=== PATIENT | male | born 1955 | race Caucasian/White ===

== ENCOUNTER 2019-02-18 13:26 | Inpatient (IN) | payer OTHER ==
[~2019-02-18] VITALS: Ht 175.3 cm; Wt 95.7 kg
[~2019-02-18 13:26] MED LIST: ADULT LOW DOSE81 MG PO; ALDACTONE50 MG PO; AMBIEN 5 MG TABL5 M1; AMBIEN 5 MG TABL5 M1 PO; ASPIRIN81 M2 PO; ATIVAN0.5 MG PO; BACTRIM DS TAB1 EACH PO; BRILINTA90 MG PO; CALMOSEPTINE O3.5 GM TOP; CALMOSEPTINE OI71 GM TOP; CARVEDILOL12.5 MG PO; CARVEDILOL6.25 MG PO; CLOPIDOGREL75 MG PO; COLACE 100 MG100 MG PO; COREG PO; CRESTOR10 MG PO; CRESTOR20 MG PO; DOXYCYCLINE 10100 MG PO; DURAGESIC1 EAC4 TRANSDERM; EFFIENT10 MG PO; ENOXAPARIN40 MG/0.1 SUBQ; GABAPENTIN 100100 MG PO; GABAPENTIN100 MG PO; GENTAMICIN 0.1%15 G2 TOP; GLUCOPHAGE1000 MG PO; GLYCOLAX119 GM PO; HUMALOG100 UNIT/1; HYDROCODONE-AP1 EAC6 PO; IRON325 PO; LANTUS100 UNIT/M SUBQ; LASIX 20 MG TAB20 MG PO; LEVEMIR SUBQ; LIPITOR80 MG PO; LISINOPRIL2.5 MG PO; LMX 530 GM TOP; LYRICA 50 MG50 MG; MAGOX 400400 MG PO; MEDROLDOSEPACK PO; NEURONTIN 300300 M1 PO; NITROGLYCERIN0.4 MG; NITROSTAT0.3 MG SL; NO MEDS; NORCO 5-325 TA1 EACH PO; NOVOLOG100 UNIT/1 SUBQ; OMEPRAZOLE20 M2 PO; ONDANSETRON HCL4 M2 PO; OXYCODONE HCL 55 MG PO; PAIN & FEVER325 MG PO; PHENERGAN 25 MG25 M1 PO; PROSTATE 2.4 C1 EACH PO; REMERON 30 MG T30 M1 PO; ROCEPHIN 11 GM/1001 IV; SANTYL OINTMENT30 G1 TOP; SELSUN BLUE325 M1 TOP; SENNA8.6 MG PO; SERTRALINE HCL50 MG PO; SIMVASTATIN40 MG PO; TOUJEO SOL300 UNIT/1; TRAMADOL 50 MG50 MG; TRAMADOL 50 MG50 MG PO; TRAZODONE HCL50 MG PO; TYLENOL325 MG PO; UNICOMPLEX M TA1 TA1 PO; VANCOMYCIN HCL 11 G2 IVPB; VICODIN 5-5001 EACH PO; VITAMIN B COMP1 EACH PO; VITAMIN D5000 UNIT PO; VITAMINC500 PO; XALATAN2.5 ML OPHTHALMIC; XANAX 1 MG TABLE1 MG PO
[2019-02-18 13:31] VITALS: BP 137/73
[2019-02-18 13:59] LABS: URINE BILIRUBIN NEGATIVE (Negative); URINE BLOOD 2+ (Negative); URINE CLARITY CLEAR; URINE COLOR YELLOW; URINE GLUCOSE-RANDOM NEGATIVE (Negative); URINE KETONES NEGATIVE (Negative); URINE LEUKOCYTES-REFLEX NEGATIVE (Negative); URINE NITRITE-REFLEX NEGATIVE (Negative); URINE PROTEIN 2+ (Negative); URINE SPECIFIC GRAVITY 1.025 (1.005-1.030); URINE UROBILINOGEN 0.2 E.U./dl (0.2-1.0)
[2019-02-18 14:09] LABS: ABSOLUTE BASOPHILS 0.1 thou/uL (0.0-0.2); ABSOLUTE EOSINOPHILS 0.4 thou/uL (0.0-0.7); ABSOLUTE LYMPHOCYTES 0.7 thou/uL (0.8-5.3); ABSOLUTE MONOCYTES 0.3 thou/uL (0.0-1.2); ABSOLUTE NEUTROPHILS 3.4 thou/uL (1.6-8.1); BASOPHILS 1.2 %; EOSINOPHILS 9.1 %; HEMATOCRIT 32.4 % (42.0-52.0); HEMOGLOBIN 10.8 gm/dL (14.0-18.0); LYMPHOCYTES 13.5 %; MCH 27.8 pg (26.0-34.0); MCHC 33.2 g/dL (28.0-37.0); MCV 83.8 fL (80.0-100.0); MONOCYTES 6.4 %; MPV 7.8 fl. (7.2-11.1); NUCLEATED RBCS 0 /100WBC; PLATELET COUNT* 190 thou/uL (150-400); POLYS 69.8 %; RBC 3.87 mil/uL (4.50-6.00); WBC 4.8 thou/uL (4.0-11.0)
[2019-02-18 14:16] LABS: APTT 25.2 Seconds (25.0-31.3); INR 1.1; PROTIME 11.4 Seconds (9.20-11.50)
[2019-02-18 14:19] LABS: SQUAMOUS 0-3 Few /LPF (0-3)
[2019-02-18 14:20] LABS: URINE WBC-REFLEX 0-5 Rare /HPF (0-5)
[2019-02-18 14:21] LABS: URINE RBC 0-2 Rare /HPF (0-2)
[2019-02-18 14:23] LABS: ANION GAP 7 mmol/L (7-16); BUN 17 mg/dL (7-18); CHLORIDE 106 mmol/L (98-107); CO2 30 mmol/L (21-32); CREATININE 1.2 mg/dL (0.6-1.3); GLUCOSE 127 mg/dL (70-99); POTASSIUM 3.9 mmol/L (3.5-5.1); SODIUM 143 mmol/L (136-145); TROPONIN-I LEVEL <0.06 ng/mL (<0.06)
[2019-02-18 14:29] LABS: ALBUMIN 3.1 g/dL (3.4-5.0); ALKALINE PHOSPHATASE 109 U/L (46-116); NT-PRO BRAIN NAT PEPTIDE 2657 pg/mL (<300); SGOT 15 U/L (15-37); SGPT 21 U/L (30-65); TOTAL BILIRUBIN 0.5 mg/dL (<0.1-1.0); TOTAL PROTEIN 6.6 g/dL (6.4-8.2)
[2019-02-18 14:29] LABS: AMORPHOUS URATES Many /LPF (None Seen); CASTS None Seen /LPF (None Seen)
[2019-02-18 14:30] LABS: BACTERIA-REFLEX 1-9 Few /HPF (None Seen)
[2019-02-18 14:31] LABS: MUCUS None Seen strn/LPF (None Seen)
[2019-02-18 16:35] VITALS: BP 126/55
[2019-02-18] MEDS ORDERED: NEURONTIN 300300 M1 PO (16:50)
[2019-02-18 20:20] VITALS: BP 126/76
[2019-02-19] VITALS: BP 120/61
[2019-02-19 04:00] VITALS: BP 124/57
[2019-02-19 07:15] VITALS: BP 114/54
--- NOTE | 2019-02-19 11:38 | EKG ---
[place] [address] ELECTROCARDIOGRAM REPORT Name: JAMEL CAMARGO Room: [address] ADM IN M.R.#: [id number] Admission: 02/18/19 Attend Phys: Wiliam Connors MD Discharge: Date of : 53 Report #: [id number] THIS REPORT FOR: //name// [facility] ED Test Date: 2019-02-18 Test Time: 13:34:06 Pat Name: JAMEL CAMARGO Department: Room: [facility] Gender: M What Job Titles Mean: SHAYAN : 1955 Requested By: Ronen Maya Order Number: [id number] MD: Vikram Dominguez Measurements Intervals [place] Rate: 75 P: 10 MA: 226 QRS: -5 QRSD: 84 T: 86 QT: 400 QTc: 447 Interpretive Statements Sinus rhythm Atrial premature complex Prolonged MA interval Anterior infarct, old Baseline wander in lead(s) V1 Compared to ECG 05/31/2016 21:01:00 Atrial premature complex(es) now present First degree AV block now present Sinus tachycardia no longer present Myocardial infarct finding still present Electronically Signed On 02-19-2019 11:38:12 CDT by Vikram Dominguez [email or web address] <ELECTRONICALLY SIGNED> By: Vikram Dominguez MD, [facility] 02/19/19 1138 1334 1334 Vikram Dominguez MD, [facility] /EPI
[2019-02-19 12:15] VITALS: BP 148/75
[2019-02-19 16:12] VITALS: BP 139/56
[2019-02-19 20:30] VITALS: BP 122/57
[2019-02-20] VITALS: BP 115/66
[2019-02-20 03:40] VITALS: BP 131/61
[2019-02-20 07:15] VITALS: BP 144/71
[2019-02-20] MEDS ORDERED: ASPIR 8181 MG PO (10:14)
[2019-02-20 12:16] VITALS: BP 148/70
--- NOTE | 2019-02-20 13:02 | 2DMMODE ---
[place] [address] 2 D/M-MODE ECHOCARDIOGRAM Name: JAMEL CAMARGO Room: [facility] IN [facility]#: [id number] Admission: 02/18/19 Attend Phys: Wiliam Connors, Discharge: Date of : 53 Date of Service: 02/20/19 1302 Report #: [id number] THIS REPORT FOR: //name// APPROVED REPORT Study performed: 02/20/2019 09:39:46 EXAM: Comprehensive 2D, Doppler, and color-flow Echocardiogram Patient Location: In-Patient Room #: 224 Status: routine BSA: 2.20 HR: 72 bpm BP: 144/71 mmHg Rhythm: NSR Other Information Study Quality: Good Indications Congestive Heart Failure Syncope Chest Pain 2D Dimensions IVSd: 10.18 (7-11mm) LVOT Diam: 21.89 (18-24mm) LVDd: 54.59 mm PWd: 10.26 (7-11mm) Ascending Ao: 33.71 (22-36mm) LVDs: 40.50 (25-40mm) Aortic Root: 31.80 mm Volumes Left Atrial Volume (Systole) LA ESV Index: 39.10 mL/m2 Aortic Valve AoV Peak Kevin.: 1.02 m/s AO Peak Gr.: 4.15 mmHg LVOT Max P.86 mmHg AO Mean Gr.: 2.13 mmHg LVOT Mean P.60 mmHg LVOT Max V: 0.85 m/s AO V2 VTI: 20.80 cm LVOT Mean V: 0.60 m/s ROHIT (VTI): 3.41 cm2 LVOT V1 VTI: 18.87 cm Mitral Valve E/A Ratio: 0.87 [place] [address] 2 D/M-MODE ECHOCARDIOGRAM Name: JAMEL CAMARGO Room: [address] IN .R.#: [id number] Admission: 02/18/19 Attend Phys: Wiliam Connors, Discharge: Date of : 53 Date of Service: 02/20/19 1302 Report #: [id number] MV Decel. Time: 142.88 ms MV E Max Kevin.: 0.87 m/s MV PHT: 41.44 ms MVA (PHT): 5.31 cm2 TDI E/Lateral E': 7.91 E/Medial E': 9.67 Medial E' Kevin.: 0.09 m/s Lateral E' Kevin.: 0.11 m/s Pulmonary Valve PV Peak Kevin.: 0.80 m/s PV Peak Gr.: 2.55 mmHg Tricuspid Valve RAP Estimate: 5.00 mmHg TR Peak Gr.: 44.64 mmHg RVSP: 49.00 mmHg PA Pressure: 49.00 mmHg Left Ventricle The left ventricle is normal size. Regional wall motion abnormalities are noted.The anterior wall is akinetic.The apex is akinetic.The lateral is mildly hypokinetic.Other segements are normal. There is normal left ventricular wall thickness. Left ventricular systolic function is normal. The left ventricular ejection fraction is within the normal range. No left ventricle thrombus noted on this study. LVEF is 30-35%. Grade I - abnormal relaxation pattern. Right Ventricle The right ventricle is normal size. The right ventricular systolic function is normal. Atria Left atrium is mildly dilated. The right atrium size is normal. Aortic Valve The aortic valve is normal in structure. No aortic regurgitation is present. There is no aortic valvular stenosis. Mitral Valve The mitral valve is normal in structure. Mild mitral regurgitation. No evidence of mitral valve stenosis. Tricuspid Valve The tricuspid valve is normal in structure. Trace tricuspid regurgitation. Mod[place] [address] 2 D/M-MODE ECHOCARDIOGRAM Name: JAMEL CAMARGO Room: [address] IN M.R.#: [id number] Admission: 02/18/19 Attend Phys: Wiliam Connors, Discharge: Date of : 53 Date of Service: 02/20/19 1302 Report #: [id number] Pulmonic Valve The pulmonary valve is normal in structure. There is no pulmonic valvular regurgitation. Great Vessels The aortic root is normal in size. IVC is not visualized. Pericardium There is no pericardial effusion. <Conclusion> LVEF is 30-35%. Regional wall motion abnormalities are noted.The anterior wall is akinetic.The apex is akinetic.The lateral is mildly hypokinetic.Other segements are normal. No left ventricle thrombus noted on this study. Left atrium is mildly dilated. There is no aortic valvular stenosis. No aortic regurgitation is present. Mild mitral regurgitation. <ELECTRONICALLY SIGNED> By: Vikram Dominguez MD, FACC 02/20/19 1302 1302 1302 Vikram Dominguez MD, FACC /INF
[2019-02-20 15:52] VITALS: BP 139/71
[2019-02-20 20:00] VITALS: BP 129/57
[2019-02-21] VITALS: BP 137/67
[2019-02-21 04:00] VITALS: BP 154/78
[2019-02-21 08:00] VITALS: BP 162/82
[2019-02-21] MEDS ORDERED: LISINOPRIL2.5 M1 PO (09:21)
[2019-02-21 12:15] VITALS: BP 157/76
--- NOTE | 2019-02-21 14:21 | CARDNUC ---
[place] [address] CARDIAC NUCLEAR IMAGING REPORT Name: JAMEL CAMARGO Room: [address] IN [facility]#: [id number] Admission: 02/18/19 Attend Phys: Wiliam Connors, Discharge: Date of : 53 Date of Service: 02/21/19 1421 Report #: [id number] THIS REPORT FOR: //name// APPROVED REPORT Imaging Protocol: Stress Tc-99m/Rest Tc-99m 2 days Study performed: 02/20/2019 11:33:00 Indication: Seizure Patient Location: In-Patient Room #: 224 Stress Tech: Gisele Schaeffer Stress Nurse: Batsheva Campbell RN NM Tech:ЮЛИЯ Arciniega Ht: 5 ft 9 in Wt: 233 lbs BSA: 2.20 m2 BMI: 34.40 Medical History Medical History: Angina, CAD s/p CABG, HTN, Hyperlipidemia, PVD, Seizures, Stroke/TIA, HX PE's /IVC filter, bilateral BTK amputee. Medications: Carvedilol, ASA 81 Mg, Lipitor. Allergies: Codeine Cardiac Risk Factors: Age, HTN, Hyperlipidemia, PVD, HX of PE's, HX CVA. Previous Cardiac Procedures: CABG Pretest Chest Pain Characteristics: No chest pain Exercise History: Sedentary Physical Disabilities: Bilateral BTK amputee. Meds Held (24 hrs): Carvedilol. Resting Data Rest SPECT myocardial perfusion imaging was performed in supine position 30 minutes following the intravenous injection of 36.0 mCi of Tc-99m Sestamibi. Time of rest injection: 1105 Date: 02/21/2019 The images were gated to evaluate regional wall motion and calculate left ventricular ejection fraction. Administration Route: IV Pharmacologic Stress Pharmacologic stress test was performed by injecting Regadenoson 0.4 mg IV push over 10-15 seconds immediately followed by the intravenous injection of 36.1 mCi of Tc-99[place] [address] CARDIAC NUCLEAR IMAGING REPORT Name: JAMEL CAMARGO IVAN Room: [address]#: [id number] Admission: 02/18/19 Attend Phys: Wiliam Connors, Discharge: Date of : 53 Date of Service: 02/21/19 1421 Report #: [id number] Time of stress injection: 1155 Date: 02/20/2019 Administration Route: IV Administration Site: Right Wrist Gated Stress SPECT was performed 40 minutes after stress injection. The images were gated to evaluate regional wall motion and calculate left ventricular ejection fraction. Stress only was performed in the Supine position. Stress Test Details Stress Test: Pharmacologic stress testing performed using 0.4 mg of regadenoson per 5 mL given IV over 10 seconds. Reason for pharmacologic stress test: Bilateral BTK amputee.. HR Max Heart Rate (APMHR): 156 bpm Resting HR: 79 bpm Target HR (85% APMHR): 132 bpm Max HR Achieved: 99 bpm % of APMHR: 63 Recovery HR: 92 bpm HR response to stress: Normal HR response to stress BP Resting BP: 140/84 mmHg Max BP: 124/68 mmHg Recovery BP: 128/69 mmHg BP response to stress: Normal blood pressure response to stress. ECG Resting ECG: nsr ant q waves Stress ECG: nsr ST Change: none Maximum ST Deviation: none mm Arrhythmia: none Recovery ECG: nsr Recovery ST Change: none Recovery ST Deviation: none mm Recovery Arrhythmia: none Clinical Reason for Termination: Completed protocol Stress Symptoms: Dyspnea Exercise duration: 0 min 0 sec Exercise capacity: 1.00 [place] [address] CARDIAC NUCLEAR IMAGING REPORT Name: BRITTNEYRenukaJAMEL LOVE Room: [address]#: [id number] Admission: 02/18/19 Attend Phys: Wiliam Connors, Discharge: Date of : 53 Date of Service: 02/21/19 1421 Report #: [id number] 63 year old male inpatient presented with recent HX of near syncope/seizure. HX of PE s/p IVC filter, CABG and CVA's. Patient has bilateral BTK amputations and had to lay in bed for test. Lexiscan tolerated. Patient escorted via bed by staff to Nuclear Medicine for images. Patient stable with no complaints at that time. Stress ECG Conclusion negative for ischemia Study Quality Study: Good Artifact: No artifact Lung Uptake: Normal Study Data Post stress, the left ventricular ejection was 34%.. SSS: 7 SRS: 6 SDS: 1 Perfusion There is a large , severe intensity distal anterior, apical, apical septal defect on both rest and stress images, normal perfusion all other segments. Compatible with distal anterior AK.No periinfarct ischemia is seen. Images were reviewed using [employer]. Wall Motion severe distal anterior ,septal,apical hypokinesis. Elevated end diastolic volume Nuclear Conclusion ECG Findings: negative for ischemia Clinical Findings: negative for ischemia Nuclear Findings: negative for ischemia Exercise Capacity: not assessed Left Ventricular Function: abnormal Risk Study: moderate to high The study demonstrates prior anterior AK, without shelly-infarct ischemia and moderate [place] [address] CARDIAC NUCLEAR IMAGING REPORT Name: JAMEL CAMARGO Room: [address] IN M.R.#: [id number] Admission: 02/18/19 Attend Phys: Wiliam Connors, Discharge: Date of : 53 Date of Service: 02/21/19 1421 Report #: [id number] <Conclusion> negative for ischemia <ELECTRONICALLY SIGNED> By: Vikram Dominguez MD, FACC 02/21/19 142 20 20 Vikram Dominguez MD, FACC /INF
[2019-02-21 15:58] VITALS: BP 145/73
[2019-02-21 20:00] VITALS: BP 135/60
[2019-02-22] VITALS: BP 132/54
[2019-02-22 04:00] VITALS: BP 120/62
[2019-02-22 08:00] VITALS: BP 134/71
[2019-02-22 12:00] VITALS: BP 107/56
[2019-02-22 20:00] VITALS: BP 141/70
[2019-02-23 04:00] VITALS: BP 121/64
[2019-02-23 08:00] VITALS: BP 125/69
--- NOTE | 2019-02-23 09:12 | EEG ---
[address] [address] EEG STUDY REPORT Name: JAMEL CAMARGO Room: [address] IN ..#: [id number] Admission: 02/18/19 Attend Phys: Wiliam Connors MD Discharge: Date of : 53 Report #: [id number] THIS REPORT FOR: //name// CC: Romie Connors MD HISTORY: The patient is a 63-year-old male with possible seizure. An EEG is requested for further evaluation. DESCRIPTION: The awake record consists of symmetric moderate amplitude 8-9 posterior dominant rhythm, which attenuates with eye opening. Photic stimulation is non-activating. Stage 1 sleep is characterized by attenuation of the background record. No focal abnormalities or epileptiform discharges are noted. IMPRESSION: This is a normal adult awake to stage 1 sleep record. No focal abnormalities or epileptiform discharges were noted. <ELECTRONICALLY SIGNED> By: Harika Dominguez DO 02/23/19 0912 1135 [id number] Dominguez DO /nt
[2019-02-23 12:00] VITALS: BP 113/52
--- NOTE | 2019-02-23 13:31 | EKG ---
[place] [address] ELECTROCARDIOGRAM REPORT Name: JAMEL CAMARGO Room: [address] ADM IN M.R.#: [id number] Admission: 02/18/19 Attend Phys: Wiliam Connors MD Discharge: Date of : 53 Report #: [id number] THIS REPORT FOR: //name// [facility] Test Date: 2019-02-23 Test Time: 08:29:34 Pat Name: JAMEL CAMARGO Department: Room: [address] Gender: M Inspector [employer]: : 1955 Requested By: Billy Portillo Order Number: [id number] Reading MD: Marco Vera Measurements Intervals [place] Rate: 70 P: 55 NM: 226 QRS: 10 QRSD: 87 T: 95 QT: 403 QTc: 435 Interpretive Statements Sinus rhythm Prolonged NM interval Borderline low voltage, extremity leads Consider anterior infarct Nonspecific T abnormalities, lateral leads Compared to ECG 02/18/2019 13:34:06 Atrial premature complex(es) no longer present Myocardial infarct finding still present Electronically Signed On 02-23-2019 13:31:33 CDT by Marco Vera [email or web address] <ELECTRONICALLY SIGNED> By: Marco Vera MD, [facility] 02/23/19 1331 0829 0829 Marco Vera MD, [facility] /EPI
--- NOTE | 2019-02-23 13:32 | EKG ---
[place] [address] ELECTROCARDIOGRAM REPORT Name: JAMEL CAMARGO Room: [address] ADM IN M.R.#: [id number] Admission: 02/18/19 Attend Phys: Wiliam Connors MD Discharge: Date of : 53 Report #: [id number] THIS REPORT FOR: //name// [facility] Test Date: 2019-02-23 Test Time: 08:30:32 Pat Name: JAMEL CAMARGO Department: Room: [address] Gender: M [employer]: : 1955 Requested By: Billy Portillo Order Number: [id number] Ronda MD: Marco Vera Measurements Intervals [place] Rate: 70 P: 56 ID: 222 QRS: 5 QRSD: 89 T: 94 QT: 406 QTc: 439 Interpretive Statements Sinus rhythm Prolonged ID interval Borderline low voltage, extremity leads Consider anterior infarct Nonspecific T abnormalities, lateral leads Electronically Signed On 02-23-2019 13:32:20 CDT by Marco Vera [email or web address] <ELECTRONICALLY SIGNED> By: Marco Vera MD, [facility] 02/23/19 1332 9 9 Marco Vera MD, [facility] /EPI
[2019-02-23 15:26] VITALS: BP 105/50
--- NOTE | 2019-02-23 19:12 | CON ---
[address] [address] CONSULTATION Name: JAMEL CAMARGO Room: [address] IN M.R.#: [id number] Admission: 02/18/19 Attend Phys: Wiliam Connors MD Discharge: Date of : 53 Report #: [id number] THIS REPORT FOR: //name// CC: Romie Connors DATE OF SERVICE: 02/21/2019 HISTORY OF PRESENT ILLNESS: This is a 63-year-old male patient who was evaluated by me for seizure-like activity. I discussed the patient with Dr. Sue yesterday and I discussed the patient with him today. This patient looks like had a grand mal seizure. He stiffened up. He had altered mental status and then he became better. He never had this kind of episode before. He used to be a diabetic, but he does not take any medications now and does not have any trouble with hypoglycemia. REVIEW OF SYSTEMS: Positive for what looks like seizure this time. He had a CVA in the past. According to him, it affected the right side. I do not have any of those records. He does appear to have a significantly decreased ejection fraction. A 14-point review of systems also indicates amputation on both sides. He is being seen by Cardiology. He had a history of osteomyelitis in the past. He does have a history of hyperlipidemia. He said he lost a lot of weight that helped his diabetes, but he did not have any surgery. PAST MEDICAL HISTORY: Positive for bilateral amputation. FAMILY HISTORY: Negative for any early age stroke. SOCIAL HISTORY: He denies any abuse of alcohol. PHYSICAL EXAMINATION: The patient is alert, responsive, able to follow simple commands. His speech, concentration, fund of knowledge and memory is at his baseline. Cranial nerve examination 2-12 looks unremarkable. Neuromuscular examinations indicate amputations on both lower extremities. There is no meningeal sign. There is no carotid bruit. Cardiac examination is unremarkable. No respiratory difficulty. Blood pressure is 157/76, respirations 18, pulse is 81, temperature is 98.3. LABORATORY DATA: White count is 5.6, hemoglobin is somewhat low. His last B12 was on the lower side at 198. His MRI was reviewed and that does not show any acute changes. IMPRESSION: Clinically, it does look like this patient had a seizure. He had multiple strokes in the past. He does have cardiomyopathy. He needs further workup. He needs monitoring to look for [place] [address] CONSULTATION Name: JAMEL CAMARGO Room: [address] IN [facility]#: [id number] Admission: 02/18/19 Attend Phys: Wiliam Connors MD Discharge: Date of : 53 Report #: [id number] He will need a carotid Doppler to make sure vertebral flow is okay. He needs to follow up with us as an outpatient. I discussed with him the option of taking the medications for seizure or not taking it. He does not want to take any seizure medication at the moment. He was instructed to take seizure precautions. Those seizure precautions were discussed with him in detail. More than 50 minutes of time was spent taking care of this patient today and majority of that time was spent counseling the patient and coordinating his care. <ELECTRONICALLY SIGNED> By: Bryan Navarrete MD 02/23/19 1912 1253 0505Bryan Navarrete MD /nt
[2019-02-23 20:00] VITALS: BP 123/57
[2019-02-24] VITALS: BP 134/63
[2019-02-24 04:35] VITALS: BP 130/70
[2019-02-24 08:00] VITALS: BP 131/76
[2019-02-24 08:56] VITALS: BP 131/76
--- NOTE | 2019-02-24 09:29 | CON ---
[address] [address] CONSULTATION Name: JAMEL CAMARGO Room: [address] IN M.R.#: [id number] Admission: 02/18/19 Attend Phys: Wiliam Connors MD Discharge: Date of : 53 Report #: [id number] THIS REPORT FOR: //name// CC: Romie Connros DATE OF SERVICE: 02/19/2019 REQUESTING PHYSICIAN: Adolph Ny MD CHIEF COMPLAINT: Syncopal, neurologic event. HISTORY OF PRESENT ILLNESS: The patient is a 63-year-old man with ischemic cardiomyopathy, had a witnessed seizure by his daughter and granddaughter. He was shaving at that time. He started to have gurgling and then he slid out of his wheelchair. By the time he got to the Emergency Room, he was somewhat postictal and combative and confused. He was given Versed. His presenting ECG was a sinus rhythm. He has no complaints of chest pain prior to the event. He was not having palpitations. He was not having orthopnea or PND. He has had prior MIs and so this has not felt like any of those. His baseline ECG shows an abnormal infarct, anterior old appearing, but sinus rhythm on all of telemetry readings and ECGs since his hospitalization yesterday. PAST MEDICAL HISTORY: He has a complex medical history. He had previously been seen in our practice for prior [place] and had prior PCI with Dr. Messina and then he presented to [place] with another acute coronary syndrome event and required open heart surgery in 2015. Details of the surgery are not available. He then developed complications of postoperative pulmonary embolus and CVA and ultimately developed decubitus ulcers in his lower extremities with osteomyelitis and had bilateral slwew-iki-jfih amputations and it has been in rehab facilities off and on for the last 3 years or so. He has a history of morbid obesity, hyperlipidemia, HOME MEDICATIONS: Include carvedilol 12.5 mg p.o. b.i.d., Remeron, tramadol, Plavix 75 mg daily, lidocaine, insulin. REVIEW OF SYSTEMS: No fevers or chills. Positive weakness. CARDIOVASCULAR: No chest pain, no orthopnea, no palpitations. NEUROLOGIC: Positive syncope, positive seizure, positive history of CVAs. HEMATOLOGIC: No anemia or bleeding disorders. RENAL: No history of kidney failure. ENDOCRINE: [place] [address] CONSULTATION Name: JAMEL CAMARGO Room: [address]#: [id number] Admission: 02/18/19 Attend Phys: Wiliam Connors MD Discharge: Date of : 53 Report #: [id number] ID: No fevers or chills. PAST SURGICAL HISTORY: Prior bypass surgery as noted above. SOCIAL HISTORY: He had been living in a nursing facility until just recently. Now, he is living with his family, his daughter. PHYSICAL EXAMINATION: VITAL SIGNS: Blood pressure 114/54, pulse 73, sinus rhythm. GENERAL: This is an obese, middle-aged male. He is alert, pleasant, in no apparent distress. HEENT: Eyes are intact. No facial asymmetry. NECK: Supple. No jugular venous distention. Carotid upstrokes are normal. I cannot hear bruits. CARDIOVASCULAR: Regular faint S3. I cannot hear a murmur. LUNGS: Diminished breath sounds, but clear. ABDOMEN: Soft, nontender. EXTREMITIES: He has nityp-wph-btcl amputations. Electrocardiogram shows sinus rhythm, anterior infarct, old. Hemoglobin is 10.8, white blood count 4.8, platelet count 190,000. Troponin I is 0.06 x 3 sets. Creatinine is 1.2. Sodium is 143, potassium 3.9, chloride is 106, CO2 is 30, glucose is 127. CT scan of brain showed no acute process. IMPRESSION: 1. Seizure event. Etiology of this could be neurologic in nature and Neurology evaluation is pending, likely requiring an EEG. We will continue with cardiac telemetry monitoring and if his neurologic workup is negative, he will need to have 30 days of cardiac monitoring as well. 2. Ischemic cardiomyopathy, I ordered an echocardiogram and stress test to rule out ischemic etiology. Currently, his telemetry is normal. 3. Chronic systolic congestive heart failure. He does not have evidence of heart failure. 4. Hyperlipidemia. He should be back on a statin therapy. I would continue with his Plavix as he has a history of severe vascular disease if he does not have evidence of intracranial bleeding. 5. Insulin requiring diabetes. <ELECTRONICALLY SIGNED> By: Billy Portillo MD, FACC 02/24/19 0929 1107 0618Vikram Dominguez MD, FACC /nt
--- NOTE | 2019-02-24 16:41 | CARD ---
[address] [address] CARDIAC CATH REPORT Name: JAMEL CAMARGO Room: [address] IN [facility]#: [id number] Admission: 02/18/19 Attend Phys: Wiliam Connors MD Discharge: 02/24/19 Date of : 53 Report #: [id number] THIS REPORT FOR: //name// APPROVED REPORT Study performed: 02/22/2019 15:47:08 Patient Status: In-Patient Room #: 224 Event Personnel: Billy Portillo Development Spec, Acacia Estrada RN RN, Benton DavisIS Scrub, Laina Aparicio RN Monitor Exam: insertion of a single lead ICD Indications: ischemic cardiomyopathy The patient is a 63 year-old male with a history of ischemic cardiomyopathy. Patient Info Last EF%: 34% Date: 02/18/19 NYHA Heart Class: II Reason for implant: Primary prevention Intraoperative Conscious Sedation Sedation start time: 16:18 Case end Time: 16:42 Fentanyl 75 mcg Versed 3 mg Implanted Devices: Biotronik Intica 7 VRT DX DF1 pro-MRI, model #247778, serial number [id number] single lead ICD generator Biotronik Plexa pro-MRI DF1 DX 65^15, model #709472, serial #[id number] RV pacing defibrillator lead Procedure After informed consent was obtained the patient was brought to the interventional radiology lab. The area of the left chest was prepped and draped in sterile fashion. Local anesthesia was achieved with 1% lidocaine. Next after an initial incision was made a device pocket was formed over the left pectoralis muscle using a electrocautery and blunt dissection. Next after a peripheral injection of 10 mL of IV contrast the left subclavian vein was accessed using a micropuncture kit. Ultimately a safety J guidewire was advanced to the right atrium under fluoroscopic guidance. Next a 7 [place] tear-away introducer was advanced over the guidewire. The dilator and guidewire were removed and a RV pacing defibrillator lead was advanced to a secure position within the right ventricular apex. The lead was actively fixed. The tear-away introducer was removed. [place] [address] CARDIAC CATH REPORT Name: JAMEL CAMARGO Room: [address]#: [id number] Admission: 02/18/19 Attend Phys: Wiliam Connors MD Discharge: 02/24/19 Date of : 53 Report #: [id number] Thresholds and sensing were checked and deemed to be satisfactory. The lead was then secured within the device pocket using the designated cuffs and interrupted stitches of 0 silk suture. The device pocket was then flushed with antibiotic solution. Next the ICD generator was attached to the lead. The redundant lead and generator were then placed within the device pocket. The deep tissues were closed using interrupted stitches of 2-0 Vicryl. The skin incision was then closed with a single subcutaneous tubular stitch of 4-0 Vicryl. Several Steri-Strips were placed across the incision. A sterile Telfa dressing was then covered with a Tegaderm. The patient tolerated procedure well without complication. Findings The sensed P-wave was 16.5 mV. The sensed R-wave was 23.8 mV. The RV pacing threshold was 0.8 V at 0.40 ms. The RV pacing impedance was 595 ohms. VF detection rate to 122 VT 1 detection rate 154 bpm VT 2 detection rate 176 bpm VF therapies anti-tach pacing times one followed by 40 J shock 8 VT 1 therapy monitor only VT 2 therapies anti-tach pacing 6 followed by 40 J shock 8 Conclusion 1. Ischemic cardiomyopathy. 2. Successful placement of a single lead ICD for primary prevention. <ELECTRONICALLY SIGNED> By: Billy Portillo MD, [facility] 02/24/191640 40 40Micfabi Portillo MD, FACC /INF
== END 2019-02-24 13:29 | disposition home health service (06) | DRG 245 ==
LOC: M.ERS 13:26 → M.2W 14:42 → M.TBA-ER 14:42 → M.2W 16:21
PROVIDERS: Emergency Medicine Emergency Medical Services
DX: I25.5 Ischemic cardiomyopathy (principal); G40.419 Other generalized epilepsy and epileptic syndromes, intractable, without status epilepticus; E44.1 Mild protein-calorie malnutrition; I50.22 Chronic systolic (congestive) heart failure; E78.5 Hyperlipidemia, unspecified; E11.51 Type 2 diabetes mellitus with diabetic peripheral angiopathy without gangrene; E66.01 Morbid (severe) obesity due to excess calories; I11.0 Hypertensive heart disease with heart failure; I25.10 Atherosclerotic heart disease of native coronary artery without angina pectoris; G40.909 Epilepsy, unspecified, not intractable, without status epilepticus; Z79.4 Long term (current) use of insulin; Z95.820 Peripheral vascular angioplasty status with implants and grafts; Z89.512 Acquired absence of left leg below knee; Z95.1 Presence of aortocoronary bypass graft; Z86.73 Personal history of transient ischemic attack (TIA), and cerebral infarction without residual deficits; Z95.5 Presence of coronary angioplasty implant and graft; Z88.6 Allergy status to analgesic agent; Z68.31 Body mass index [BMI] 31.0-31.9, adult; Z86.711 Personal history of pulmonary embolism; Z95.828 Presence of other vascular implants and grafts

== ENCOUNTER 2019-05-12 17:38 | Inpatient (IN) | payer OTHER | END 2019-05-18 13:15 | disposition home health service (06) | DRG 101 | LOC: M.ERS 17:38 → M.TBA-ER 18:50 → M.2W 20:05 → M.ORTHSURG 05-15 23:10 | PROVIDERS: ADMIT Internal Medicine | DX: R56.9 Unspecified convulsions (principal); I69.359 Hemiplegia and hemiparesis following cerebral infarction affecting unspecified side; I10 Essential (primary) hypertension; E78.5 Hyperlipidemia, unspecified; E11.51 Type 2 diabetes mellitus with diabetic peripheral angiopathy without gangrene; I25.10 Atherosclerotic heart disease of native coronary artery without angina pectoris; L21.9 Seborrheic dermatitis, unspecified; Z79.82 Long term (current) use of aspirin; Z79.4 Long term (current) use of insulin; Z95.820 Peripheral vascular angioplasty status with implants and grafts; Z89.512 Acquired absence of left leg below knee; Z89.511 Acquired absence of right leg below knee; Z95.1 Presence of aortocoronary bypass graft; Z95.5 Presence of coronary angioplasty implant and graft; Z88.6 Allergy status to analgesic agent; Z79.899 Other long term (current) drug therapy ==

== ENCOUNTER 2019-12-10 16:03 | Emergency (ER) | payer MEDICARE, OTHER ==
[~2019-12-10] VITALS: Ht 175.3 cm
[~2019-12-10 16:03] MED LIST changes: +ACCUNEB SO1.25 MG/1 INH; +ASPIR 8181 MG PO; +KEPPRA 500 MG500 M1 PO; +KETOCONAZOLE120 ML TOP; +LISINOPRIL2.5 M1 PO
[2019-12-10 17:12] LABS: HEMATOCRIT 38.2 % (42.0-52.0); HEMOGLOBIN 13.4 gm/dL (14.0-18.0); MCH 30.2 pg (26.0-34.0); MCV 86.2 fL (80.0-100.0); MPV 7.6 fl. (7.2-11.1); RBC 4.43 mil/uL (4.50-6.00); RDW-CV 13.2 % (10.5-14.5); WBC 6.4 thou/uL (4.0-11.0)
[2019-12-10 17:19] LABS: URINE BILIRUBIN NEGATIVE (Negative); URINE BLOOD TRACE (Negative); URINE CLARITY CLEAR; URINE COLOR YELLOW; URINE GLUCOSE-RANDOM NEGATIVE (Negative); URINE KETONES NEGATIVE (Negative); URINE LEUKOCYTES NEGATIVE (Negative); URINE NITRITE NEGATIVE (Negative); URINE PROTEIN 2+ (Negative)
[2019-12-10 17:24] LABS: CALCIUM 8.9 mg/dL (8.5-10.1); CREATININE 1.5 mg/dL (0.6-1.3); POTASSIUM 4.5 mmol/L (3.5-5.1)
[2019-12-10 17:28] LABS: AMP/METHAMP Negative (Negative); BARBITURATES Negative (Negative); BENZODIAZEPINES Negative (Negative); COCAINE Negative (Negative); METHADONE Negative (Negative); OPIATES Negative (Negative); PCP Negative (Negative); THC Negative (Negative)
[2019-12-10 17:29] LABS: ALBUMIN 3.3 g/dL (3.4-5.0); TOTAL BILIRUBIN 0.8 mg/dL (<0.1-1.0)
[2019-12-10 17:31] LABS: CRYSTALS None Seen /LPF (None Seen); HYALINE CASTS 0-3 Few /LPF (None Seen); MUCUS None Seen strn/LPF (None Seen); SQUAMOUS 0-3 Few /LPF (0-3); URINE RBC 0-2 Rare /HPF (0-2)
[2019-12-10 17:32] LABS: BACTERIA None Seen /HPF (None Seen); URINE WBC None Seen /HPF (0-5)
[2019-12-10 17:33] LABS: SALICYLATE < 2.8 mg/dL (2.8-20.0)
[2019-12-10 17:34] LABS: ACETAMINOPHEN < 2 ug/mL (10-30); ALCOHOL < 10 mg/dL (<10)
[2019-12-10] MEDS ORDERED: NORCO 5-325 TA1 EAC1 PO (23:17)
[2019-12-11 00:17] VITALS: BP 155/96
== END 2019-12-11 00:20 | disposition home or self-care (01) ==
LOC: M.ERS 16:03
PROVIDERS: Personal Emergency Response Attendant
DX: F32.9 Major depressive disorder, single episode, unspecified (principal); K42.9 Umbilical hernia without obstruction or gangrene; R45.851 Suicidal ideations; I10 Essential (primary) hypertension; E11.9 Type 2 diabetes mellitus without complications; E78.5 Hyperlipidemia, unspecified; Z95.1 Presence of aortocoronary bypass graft; Z90.89 Acquired absence of other organs; Z86.73 Personal history of transient ischemic attack (TIA), and cerebral infarction without residual deficits; Z88.5 Allergy status to narcotic agent

== ENCOUNTER 2020-09-20 12:26 | Emergency (ER) | payer MEDICARE, OTHER ==
[~2020-09-20] VITALS: Ht 165.1 cm; Wt 104.3 kg
[~2020-09-20 12:26] MED LIST changes: +NORCO 5-325 TA1 EAC1 PO
[2020-09-20 12:49] LABS: ABSOLUTE BASOPHILS 0.1 thou/uL (0.0-0.2); ABSOLUTE EOSINOPHILS 0.4 thou/uL (0.0-0.7); ABSOLUTE LYMPHOCYTES 1.4 thou/uL (0.8-5.3); ABSOLUTE MONOCYTES 0.7 thou/uL (0.0-1.2); ABSOLUTE NEUTROPHILS 5.1 thou/uL (1.6-8.1); BASOPHILS 1.2 %; EOSINOPHILS 5.8 %; HEMOGLOBIN 13.5 gm/dL (14.0-18.0); LYMPHOCYTES 17.7 %; MCH 29.9 pg (26.0-34.0); MCHC 33.8 g/dL (28.0-37.0); MCV 88.6 fL (80.0-100.0); MONOCYTES 8.7 %; MPV 6.9 fl. (7.2-11.1); NUCLEATED RBCS 0 /100WBC; PLATELET COUNT* 187 thou/uL (150-400); POLYS 66.6 %; RBC 4.51 mil/uL (4.50-6.00); RDW-CV 13.3 % (10.5-14.5); WBC 7.7 thou/uL (4.0-11.0)
[2020-09-20 12:57] LABS: CALCIUM 8.4 mg/dL (8.5-10.1); CREATININE 1.3 mg/dL (0.6-1.3); POTASSIUM 4.1 mmol/L (3.5-5.1)
[2020-09-20 13:09] LABS: ALBUMIN 2.9 g/dL (3.4-5.0); TOTAL BILIRUBIN 0.8 mg/dL (<0.1-1.0); TOTAL PROTEIN 6.7 g/dL (6.4-8.2)
[2020-09-20] MEDS ORDERED: NORCO 5-325 TA1 EAC2 PO (14:07)
[2020-09-20 14:29] VITALS: BP 141/70
--- NOTE | 2020-09-23 11:42 | EKG ---
[place] [address] ELECTROCARDIOGRAM REPORT Name: JAMEL CAMARGO Room: [facility]#: [id number] Admission: 09/20/20 Attend Phys: Discharge: 09/20/20 Date of : 53 Date of Service: 09/20/20 1251 Report #: [id number] THIS REPORT FOR: //name// [facility] ED Test Date: 2020-09-20 Test Time: 12:51:57 Pat Name: JAMEL CAMARGO Department: Room: Gender: Echocardiography Tech: MS : 1955 Requested By: Marty Singh Order Number: [id number] MD: Marco Vera Measurements Intervals [place] Rate: 76 P: -75 UT: 200 QRS: -20 QRSD: 95 T: 228 QT: 495 QTc: 557 Interpretive Statements Sinus rhythm with first degreee av block artifact noted Borderline left axis deviation Low voltage, extremity leads Probable anteroseptal infarct, old Nonspecific T abnormalities, inferior leads Compared to ECG 05/12/2019 18:35:23 Low QRS voltage now present T-wave abnormality now present Myocardial infarct finding still present Electronically Signed On 09-23-2020 11:41:52 [employer] by Marco Vera [email or web address] <ELECTRONICALLY SIGNED> By: Marco Vera MD, [facility] 09/23/20 1141 1251 125 Marco Vera MD, [facility] /EPI
== END 2020-09-20 15:00 | disposition home or self-care (01) ==
LOC: M.ERS 12:26
PROVIDERS: Family Medicine
DX: K43.9 Ventral hernia without obstruction or gangrene (principal); E11.9 Type 2 diabetes mellitus without complications; I10 Essential (primary) hypertension; E78.5 Hyperlipidemia, unspecified; I73.9 Peripheral vascular disease, unspecified; Z90.89 Acquired absence of other organs; Z95.5 Presence of coronary angioplasty implant and graft; Z95.1 Presence of aortocoronary bypass graft; Z86.73 Personal history of transient ischemic attack (TIA), and cerebral infarction without residual deficits; Z88.5 Allergy status to narcotic agent

== ENCOUNTER 2021-02-15 16:03 | Emergency (ER) | payer MEDICARE, OTHER ==
[~2021-02-15] VITALS: Ht 165.1 cm; Wt 107.5 kg
[~2021-02-15 16:03] MED LIST changes: +NORCO 5-325 TA1 EAC2 PO
[2021-02-15 17:01] LABS: ABSOLUTE BASOPHILS 0.1 thou/uL (0.0-0.2); ABSOLUTE EOSINOPHILS 0.4 thou/uL (0.0-0.7); ABSOLUTE LYMPHOCYTES 1.2 thou/uL (0.8-5.3); ABSOLUTE MONOCYTES 0.9 thou/uL (0.0-1.2); ABSOLUTE NEUTROPHILS 6.4 thou/uL (1.6-8.1); EOSINOPHILS 4.9 %; HEMATOCRIT 42.1 % (42.0-52.0); HEMOGLOBIN 14.2 gm/dL (14.0-18.0); LYMPHOCYTES 13.8 %; MCH 28.9 pg (26.0-34.0); MCHC 33.6 g/dL (28.0-37.0); MCV 86.1 fL (80.0-100.0); MONOCYTES 9.4 %; MPV 7.4 fl. (7.2-11.1); NUCLEATED RBCS 0 /100WBC; PLATELET COUNT* 228 thou/uL (150-400); POLYS 70.9 %; RBC 4.89 mil/uL (4.50-6.00); RDW-CV 14.1 % (10.5-14.5)
[2021-02-15 17:11] LABS: CREATININE 1.3 mg/dL (0.6-1.3); POTASSIUM 3.9 mmol/L (3.5-5.1)
[2021-02-15 17:15] LABS: ALBUMIN 3.1 g/dL (3.4-5.0); MAGNESIUM 1.8 mg/dL (1.8-2.4); TOTAL BILIRUBIN 1.4 mg/dL (<0.1-1.0); TOTAL PROTEIN 7.4 g/dL (6.4-8.2)
[2021-02-15] MEDS ORDERED: TRAMADOL 50 MG50 MG PO (17:21)
[2021-02-15] MEDS ORDERED: DESYREL150 MG PO (17:21)
[2021-02-15] MEDS ORDERED: GENTAK5 ML INTRAOCULR (18:02)
[2021-02-15] MEDS ORDERED: CLOTRIMAZOLE 1%15 G1 TOP (18:02)
[2021-02-15] MEDS ORDERED: AUGMENTIN 875-1 EACH PO (18:02)
[2021-02-15 19:25] VITALS: BP 150/85
--- NOTE | 2021-02-17 11:04 | EKG ---
[place] [address] ELECTROCARDIOGRAM REPORT Name: JAMEL CAMARGO Room: [facility]#: [id number] Admission: 02/15/21 Attend Phys: Discharge: 02/15/21 Date of : 53 Date of Service: 02/15/21 1717 Report #: [id number] THIS REPORT FOR: //name// [facility] ED Test Date: 2021-02-15 Test Time: 17:17:16 Pat Name: JAMEL CAMARGO Department: Room: Gender: Global Category Manager: HORACIO : 1955 Requested By: Ronen Maya Order Number: [id number] MD: Marco Vera Measurements Intervals [place] Rate: 84 P: 79 CO: 238 QRS: -18 QRSD: 94 T: 58 QT: 397 QTc: 470 Interpretive Statements Sinus rhythm Prolonged CO interval Borderline left axis deviation Anterior infarct, old Compared to ECG 09/20/2020 12:51:57 First degree AV block now present T-wave abnormality no longer present Myocardial infarct finding still present Electronically Signed On 02-17-2021 11:04:30 CDT by Marco Vera [email or web address] <ELECTRONICALLY SIGNED> By: Marco Vera MD, FAC 02/17/21 1104 171 171 Marco Vera MD, FAC /EPI
== END 2021-02-15 19:26 | disposition home or self-care (01) ==
LOC: M.ERS 16:03
PROVIDERS: Emergency Medicine Emergency Medical Services
DX: J18.9 Pneumonia, unspecified organism (principal); Z20.822 Contact with and (suspected) exposure to COVID-19; E11.9 Type 2 diabetes mellitus without complications; I10 Essential (primary) hypertension; E78.5 Hyperlipidemia, unspecified; Z95.5 Presence of coronary angioplasty implant and graft; Z90.89 Acquired absence of other organs; Z95.1 Presence of aortocoronary bypass graft; Z88.5 Allergy status to narcotic agent; Z86.73 Personal history of transient ischemic attack (TIA), and cerebral infarction without residual deficits